=== PATIENT | male | born 1985 | race Caucasian/White ===

== ENCOUNTER 2023-11-06 01:57 | Emergency (ER) | payer BC, OTHER ==
[~2023-11-06] VITALS: Ht 188 cm; Wt 90.7 kg
[2023-11-06 03:11] VITALS: BP 136/70; TEMP 98.3; O2SAT 98
[2023-11-06] MEDS ORDERED: AMOX500C2 PO (03:22)
[2023-11-06] MEDS ORDERED: AMOXICILLIN TRIHYDRATE 250 MG CAPSULE ONE (03:23)
[2023-11-06] MEDS ORDERED: IBUPROFEN 600 MG TABLET ONE (03:24)
[2023-11-06] MEDS ORDERED: PSEUDOEPHEDRINE HCL 30 MG TABLET ONE (03:24)
[2023-11-06] MEDS: IBUPROFEN 600 MG TABLET PO ONE (03:30)
[2023-11-06] MEDS: PSEUDOEPHEDRINE HCL 30 MG TABLET PO ONE (03:30)
[2023-11-06] MEDS: AMOXICILLIN TRIHYDRATE 500 MG CAPSULE PO ONE (03:30)
== END 2023-11-06 03:33 | disposition home or self-care (01) ==
LOC: ER 02:01
DX: H66.91 Otitis media, unspecified, right ear (principal)